=== PATIENT | female | born 1970 | race Caucasian/White ===

== ENCOUNTER 2019-05-21 20:29 | Emergency (ER) | payer OTHER ==
[~2019-05-21] VITALS: Ht 149.9 cm; Wt 72.6 kg
[~2019-05-21 20:29] MED LIST: AMOXICILLIN500 M1 PO; AUGMENTIN 875875 M1 PO; BENADRYL25 MG PO; DITROPAN XL10 M1 PO; EPIPEN 2-P0.3 MG/0.3 IM; ESTRACE; ESTRADIOL 1 MG T1 M1 PO; FLEXERIL PO; GLUCOPHAGE; IBUPROFEN 800800 M1 PO; MEDROLDOSEPACK PO; METFORMIN HCL500 MG PO; MOBIC; NITROGLYCERIN0.4 MG SUBLING; NORCO 5-325 TA1 EACH PO; PRINIVIL10 MG PO; PROPRANOLOL; PROPRANOLOL 1010 MG PO; ROBAXIN 750 MG750 M1 PO; ROBAXIN 750 MG750 MG PO; TAMIFLU PO; TORADOL 10 MG T10 MG PO; TRAMADOL 50 MG50 MG PO; ULTRAM 50MG TAB50 MG PO; XANAX 0.5 MG0.5 M1 PO
[2019-05-21] MEDS ORDERED: MAXALT10 MG PO (20:42)
[2019-05-21] MEDS ORDERED: SINGULAIR 10 MG10 M1 PO (20:42)
[2019-05-21 21:03] LABS: ABSOLUTE BASOPHILS 0.1 thou/uL (0.0-0.2); ABSOLUTE EOSINOPHILS 0.1 thou/uL (0.0-0.7); ABSOLUTE LYMPHOCYTES 3.5 thou/uL (0.8-5.3); ABSOLUTE MONOCYTES 0.8 thou/uL (0.0-1.2); ABSOLUTE NEUTROPHILS 6.1 thou/uL (1.6-8.1); BASOPHILS 0.6 %; EOSINOPHILS 1.2 %; HEMATOCRIT 38.4 % (37.0-47.0); HEMOGLOBIN 13.5 gm/dL (12.0-15.0); LYMPHOCYTES 33.2 %; MCH 31.5 pg (26.0-34.0); MCV 89.8 fL (80.0-100.0); MONOCYTES 7.8 %; MPV 8.6 fl. (7.2-11.1); NUCLEATED RBCS 0 /100WBC; PLATELET COUNT* 297 thou/uL (150-400); POLYS 57.2 %; RBC 4.28 mil/uL (4.20-5.00); RDW-CV 13.1 % (10.5-14.5); WBC 10.6 thou/uL (4.0-11.0)
[2019-05-21 21:11] LABS: CALCIUM 9.2 mg/dL (8.5-10.1); CREATININE 0.9 mg/dL (0.6-1.3); POTASSIUM 3.8 mmol/L (3.5-5.1)
[2019-05-21 21:15] LABS: INR 0.9; PROTIME 9.5 Seconds (9.20-11.50)
[2019-05-21 21:21] LABS: ALBUMIN 3.7 g/dL (3.4-5.0); TOTAL BILIRUBIN 0.2 mg/dL (<0.1-1.0); TOTAL PROTEIN 7.6 g/dL (6.4-8.2)
[2019-05-21] MEDS ORDERED: NITROSTAT0.4 M1 PO (23:47)
[2019-05-21] MEDS ORDERED: ADULT LOW DOSE81 MG PO (23:47)
[2019-05-21 23:59] VITALS: BP 103/67
--- NOTE | 2019-05-22 11:28 | EKG ---
[place] [address] ELECTROCARDIOGRAM REPORT Name: AAKASH SALDANA Room: [facility]#: [id number] Admission: 05/21/19 Attend Phys: Discharge: 05/22/19 Date of : 70 Report #: [id number] THIS REPORT FOR: //name// [facility] ED Test Date: 2019-05-21 Test Time: 20:39:08 Pat Name: AAKASH SALDANA Department: Room: Gender: F Online Marketing Coordinator: LISA : 1970 Requested By: Diomedes Ramírez Order Number: [id number] : Ari Wong Measurements Intervals [place] Rate: 65 P: 7 VT: 123 QRS: 14 QRSD: 89 T: 10 QT: 402 QTc: 418 Interpretive Statements Sinus rhythm Compared to ECG 03/06/2016 07:46:10 No significant changes Electronically Signed On 05-22-2019 11:28:12 BILL CLERK by Ari Wong [email or web address] <ELECTRONICALLY SIGNED> By: Ari Wong MD, [facility] 05/22/19 [id number] Ari Wong MD, FACC /EPI
== END 2019-05-22 | disposition home or self-care (01) ==
LOC: M.ERS 20:29
PROVIDERS: Emergency Medicine
DX: R07.89 Other chest pain (principal); E11.9 Type 2 diabetes mellitus without complications; G43.909 Migraine, unspecified, not intractable, without status migrainosus; Z90.49 Acquired absence of other specified parts of digestive tract; Z91.030 Bee allergy status; Z98.51 Tubal ligation status; Z90.710 Acquired absence of both cervix and uterus; Z77.22 Contact with and (suspected) exposure to environmental tobacco smoke (acute) (chronic)